=== PATIENT | female | born 1970 | race Hispanic/Latino ===

== ENCOUNTER → 2020-06-01 | Outpatient (CLI) | payer OTHER | END | disposition home or self-care (01) | LOC: OIH 15:10 | PROVIDERS: ATTEND Internal Medicine | DX: M79.641 Pain in right hand (principal) | CPT/HCPCS: 73120 ==

== ENCOUNTER 2023-04-04 10:57 | Emergency (ER) | payer OTHER ==
[~2023-04-04] VITALS: Ht 160 cm; Wt 65.8 kg
[2023-04-04] MEDS ORDERED: LOSARTAN 50 MG TABLET PO SCH (11:30)
[2023-04-04 11:38] LABS: BASOPHILS # (AUTO) 0.03 K/uL (0.00-0.20); BASOPHILS % (AUTO) 0.4 % (0.0-5.0); EOSINOPHILS # (AUTO) 0.12 K/uL (0.00-0.70); EOSINOPHILS % (AUTO) 1.6 % (0.0-8.0); HEMATOCRIT 47.4 % (36-48); IMMATURE GRANULOCYTE ABSOLUTE 0.02 K/uL (0-1); LYMPHOCYTES # (AUTO) 1.4 K/uL (1.0-4.8); LYMPHOCYTES % (AUTO) 18.5 % (21.0-51.0); MEAN CORPUSCULAR HEMOGLOBIN 29.9 pg (27.0-33.0); MEAN CORPUSCULAR VOLUME 87.9 fL (79-99); MONOCYTES # (AUTO) 0.3 K/uL (0.1-1.0); MONOCYTES % (AUTO) 4.7 % (3.0-13.0); NEUTROPHILS # (AUTO) 5.4 K/uL (1.8-7.7); NEUTROPHILS % (AUTO) 74.5 % (40.0-77.0); PLATELET COUNT (AUTO) 123 K/uL (130-400); RED BLOOD CELL COUNT(AUTO) 5.39 MIL/uL (4.00-5.50); RED CELL DISTRIBUTION WIDTH 13.2 % (11.0-15.5); WHITE BLOOD COUNT (AUTO) 7.3 K/uL (4.8-10.8)
[2023-04-04 11:49] LABS: CREATININE 0.7 mg/dL (0.5-1.5)
[2023-04-04 11:53] LABS: ALBUMIN 4.4 g/dL (3.5-5.0); BILIRUBIN,TOTAL 0.9 mg/dL (0.2-1.0); TOTAL PROTEIN, SERUM 8.5 g/dL (6.0-8.3)
[2023-04-04 12:22] VITALS: BP 133/77; PULSE 71; RESP 18; O2SAT 98
== END 2023-04-04 14:12 | disposition home or self-care (01) ==
LOC: EDH 10:57
DX: I10 Essential (primary) hypertension (principal); F41.9 Anxiety disorder, unspecified; F32.A Depression, unspecified; E78.00 Pure hypercholesterolemia, unspecified; E11.9 Type 2 diabetes mellitus without complications; G89.29 Other chronic pain
CPT/HCPCS: 36415; 80053; 85025

== ENCOUNTER → 2025-01-28 | Emergency (ER) | payer BC ==
[~2025-01-28] VITALS: Ht 152.4 cm; Wt 67.6 kg
--- NOTE | 2025-01-28 07:54 | ERN ---
General Chief Complaint: Anxiety/Panic Attack Stated Complaint: ANXIETY Time Seen by MD: 07:27 Source: patient History of Present Illness Initial Comments 54-year-old female with a past medical history of GERD anxiety spondylolisthesis diabetes hypertension cervical pain syndrome discovered that her pet cat at 4:00 a.m. and since then has had nausea emesis feeling lightheaded crying warning and extreme abdominal pain subxiphoid. She is a little perplexed and unsure about what is happening and she comes to the emergency room for both symptom control and evaluation. Allergies: Coded Allergies: No Known Drug Allergies (Unverified Allergy, Unknown, 04/04/23) Past Medical History Past Medical History: Depression, Diabetes-Type II, GERD, High Cholesterol, Hypertension Medical History Other: chronic lower back pain, cervical pain syndrome, Past Surgical History: Other Social History Social History: Negative Constitutional: (-) chills, (-) diaphoresis, (-) fever, (-) malaise, (-) weakness, (-) other documentation Respiratory: (-) cough, (-) orthopnea, (-) short of breath, (-) stridor, (-) wheezing, (-) other documentation Cardiovascular: (-) chest pain, (-) edema, (-) palpitations, (-) syncope, (-) dyspnea on exertion, (-) other documentation Gastrointestinal/Abdominal: (+) nausea, (+) vomiting Genitourinary: (-) vaginal discharge, (-) vaginal bleeding, (-) dysuria, (-) frequency, (-) hematuria, (-) pain, (-) other documentation Musculoskeletal: (+) Neck pain Skin: (-) laceration, (-) contusion, (-) abrasion, (-) abscess, (-) rash, (-) change in color, (-) change in hair, (-) change in nails, (-) diaphoresis, (-) dryness, (-) other documentation Neuro: (+) other documentation (lightheadedness) Physical Exam General Appearance: (+) moderate distress Orientation: (+) alert, (+) oriented x 3 Head/Face Trauma: No Eye: bilateral eye normal inspection, bilateral eye PERRL, bilateral eye EOMI Ear, Nose, Throat: (+) hearing grossly normal, (+) normal ENT inspection, (+) normal pharynx Neck: (+) normal inspection, (+) supple, (+) no JVD Respiratory: (+) chest non-tender, (+) lungs clear Heart: (+) regular, (+) no gallop Vascular: (+) no edema, (+) normal peripheral pulse, (+) no JVD Gastrointestinal: (+) soft, (+) non-tender, (+) bowel sound present Skin Comment mild tenting Results Laboratory and Microbiology Lab and Micro Result Laboratory Tests Test 01/28/25 07:55 01/28/25 08:00 01/28/25 09:33 White Blood Count 6.7 K/uL (4.8-10.8) Red Blood Count 5.55 MIL/uL (4.00-5.50) H Hemoglobin 16.3 g/dL (12.0-16.0) H Hematocrit 48.0 % (36-48) Mean Corpuscular Volume 86.5 fL (79-99) Mean Corpuscular Hemoglobin 29.4 pg (27.0-33.0) Mean Corpuscular Hemoglobin Concent 34.0 g/dL (32.0-36.0) Red Cell Distribution Width 12.8 % (11.0-15.5) Platelet Count 125 K/uL (130-400) L Mean Platelet Volume 13.0 fL (7.5-10.5) H Immature Granulocyte % (Auto) 0.3 % (0-1) Neutrophils (%) (Auto) 65.4 % (40.0-77.0) Lymphocytes (%) (Auto) 27.8 % (21.0-51.0) Monocytes (%) (Auto) 3.9 % (3.0-13.0) Eosinophils (%) (Auto) 2.0 % (0.0-8.0) Basophils (%) (Auto) 0.6 % (0.0-5.0) Neutrophils # (Auto) 4.4 K/uL (1.8-7.7) Lymphocytes # (Auto) 1.9 K/uL (1.0-4.8) Monocytes # (Auto) 0.3 K/uL (0.1-1.0) Eosinophils # (Auto) 0.13 K/uL (0.00-0.70) Basophils # (Auto) 0.04 K/uL (0.00-0.20) Absolute Immature Granulocyte (auto 0.02 K/uL (0-1) Nucleated Red Blood Cells 0.0 % (0.0-0.19) Sodium Level 137 mmol/L (136-145) Potassium Level 3.3 mmol/L (3.5-5.1) L Chloride Level 96 mmol/L (101-111) L Carbon Dioxide Level 28 mmol/L (21-32) Blood Urea Nitrogen 6 mg/dL (7-18) L Creatinine 0.5 mg/dL (0.5-1.0) Glomerular Filtration Rate Calc 111 mL/min (>90) Random Glucose 389 mg/dL (70-105) H Total Calcium 9.2 mg/dL (8.5-10.1) Total Bilirubin 1.0 mg/dL (0.2-1.0) Aspartate Amino Transf (AST/SGOT) 45 U/L (10-37) H Alanine Aminotransferase (ALT/SGPT) 93 U/L (12-78) H Alkaline Phosphatase 120 U/L (50-136) Total Protein 8.3 g/dL (6.0-8.3) Albumin 4.7 g/dL (3.5-5.0) Urine Color COLORLESS (YELLOW) Urine Appearance CLEAR (CLEAR) Urine pH 5.5 (5.0-8.0) Urine Specific Elizabeth 1.033 (1.001-1.031) Urine Protein 30 mg/dL (NEGATIVE) H Urine Glucose (UA) >=1000 mg/dL (NEGATIVE) H Urine Ketones 100 mg/dL (NEGATIVE) H Urine Occult Blood NEGATIVE (NEGATIVE) Urine Nitrate NEGATIVE (NEGATIVE) Urine Bilirubin NEGATIVE mg/dL (NEGATIVE) Urine Urobilinogen 0.2 mg/dL (0.2-1.0) Urine Leukocyte Esterase NEGATIVE Polly/uL Urine RBC 0-1 /HPF (0-1) Urine WBC 0-1 /HPF (0-1) Urine Squamous Epithelial Cells RARE /HPF (0-2) Urine Bacteria None /HPF (None Seen) Urine HCG, Qualitative NEGATIVE (NEGATIVE) Troponin I High Sensitivity 14 ng/L (4-50) MDM MDM: Differential diagnosis: gastroenteritis, anxiety, dehydration, flu, GERD, Rationale: Tests considered and ordered secondary to shared decision making include: Previous outside records reviewed: Old ER visits. Risk of complication and/or morbidity or mortality of patient management: None Medications-Per medication reconciliation Need for hospitalization: Patient does meet criteria for hospitalization. Need for emergency major/minor surgery: No There are no social concerns with this patient. Prescription drug management Prescriptions will include symptomatic care Patient's prior external medical records from other ER visits were reviewed by me as indicated. Prior testing and results from previous visits were reviewed. Prior tests were taken into account with medical decision making and resource utilization, independent historian/historians were used to obtain complete medical history. I independently interpreted the test that were performed, results were reviewed by me and considered findings on radiology if ordered. I have transitioned the care of this patient over to Dr. Lemon. CC: anxiety symptoms Historian: patient Comorbidities: DM, GERD, DLD, HTN Limitations by social determinates of health: none Ddx: anxiety, ACS, other Vital signs are stable, remained stable in the ER EKG (independently ordered and interpreted by me): Normal sinus rhythm, rate of 68, normal axis, good R-wave progression, intervals are stable no STEMI. Labs (independently ordered and interpreted by me): The CBC is unremarkable. Chemistry unremarkable other than glucose 389. Liver enzymes are all stable troponin is stable. Urinalysis shows glucose high specific gravity otherwise unremarkable. Treatment in ED: 1 L lactated Ringer's, Zofran, GI cocktail Re-evaluation: Stable. Symptoms improved. Stable vital signs. Patient's symptoms most consistent with a anxiety possibly some heartburn. Very low suspicion for any life threats. Low suspicion for ACS. Patient had her cat this morning which likely instigated all of the anxiety type symptoms. We will DC and recommend PCP follow up. ED Course Orders Procedure Category Date Status Time Cbc With Differential LAB 01/28/25 Complete 07:40 Comprehensive LAB 01/28/25 Complete Metabolic Panel 07:40 ,Urine Test LAB 01/28/25 Complete 07:40 Urinalysis Profile LAB 01/28/25 Complete 07:40 Ondansetron 4mg Inj PHA 01/28/25 Complete (Zofran 4mg Inj) 08:00 Lactated Ringers PHA 01/28/25 Complete 1000ml (Lactated 07:40 Lidocaine Hcl 2% PHA 01/28/25 Complete Viscous (Lidocaine Hcl 08:00 Mag/Alum/Simeth 30ml PHA 01/28/25 Complete (Maalox Plus 30ml) 08:00 Dicyclomine Hcl PHA 01/28/25 Complete (Bentyl 10mg/5ml 08:00 Troponin I High LAB 01/28/25 Complete Sensitivity 08:49 12 Lead Ekg Tracing- EKG 01/28/25 Complete Technical 08:49 Current Medications Medications (Trade) Dose Ordered Sig/Fernanda Route PRN Reason Start Time Stop Time Status Last Admin Dose Admin Al Hydroxide/Mg Hydroxide (MAALox PLUS 30ML) 30 ml ONCE ONCE PO 01/28/25 08:00 01/28/25 08:01 DC 01/28/25 08:03 Dicyclomine HCl (Bentyl 10mg/5ml Syrup) 10 mg ONCE ONCE PO 01/28/25 08:00 01/28/25 08:01 DC 01/28/25 08:03 Lactated Ringer's (Lactated Ringers 1000ml) 1,000 ml BOLUS STAT IV 01/28/25 07:40 01/28/25 07:44 DC 01/28/25 08:03 Lidocaine HCl (Lidocaine HCl 2% Viscous) 10 ml ONCE ONCE PO 01/28/25 08:00 01/28/25 08:01 DC 01/28/25 08:03 Ondansetron HCl (zoFRAN 4MG INJ) 4 mg ONCE ONCE IVP 01/28/25 08:00 01/28/25 08:01 DC 01/28/25 08:03 Vital Signs Date Time Temp Pulse Resp B/P (MAP) Pulse Ox O2 Delivery O2 Flow Rate FiO2 01/28/25 08:16 78 18 181/86 100 Room Air* 0 21 01/28/25 07:20 97.9 79 18 162/98 98 Room Air DX & DISP Disposition: Discharge Departure Impression: Primary Impression: Anxiety Additional Impressions: Mild dehydration, Hyperglycemia Condition: Stable Additional Instructions: There are no dangerous findings on your workup here today. Your symptoms may be related to GERD/reflux and anxiety about health. Your EKG is stable. Your lab work (CBC with differential, metabolic panel, liver function tests, troponin, urinalysis) does not show any life-threatening findings. You do have mild dehydration and you have elevated blood glucose. Please continue with all of your home medications. You can take an [id number] medication for your indigestion/reflux. Please follow up with the primary doctor as an outpatient later this week for re-evaluation. Return to the emergency department if you have any concerns. Referrals: NEYMAR SANTOS MD (PCP) GREGG ROSENBAUM MD Jan 28, 2025 07:54 KALPANA LEMON DO Jan 28, 2025 10:01
[2025-01-28] MEDS: LACTATED RINGERS 1000ML IV STA (08:03)
[2025-01-28] MEDS: DICYCLOMINE HCL 10 MG/5 ML ML PO ONE (08:03)
[2025-01-28] MEDS: MAG/ALUM/SIMETH 30 ML UDCUP PO ONE (08:03)
[2025-01-28] MEDS: LIDOCAINE HCL 2% VISCOUS 15 ML UDCUP PO ONE (08:03)
[2025-01-28 08:32] LABS: IMMATURE GRANULOCYTE ABSOLUTE 0.02 K/uL (0-1); NUCLEATED RED BLOOD CELLS 0.0 % (0.0-0.19); PLATELET COUNT (AUTO) 125 K/uL (130-400); RED BLOOD CELL COUNT(AUTO) 5.55 MIL/uL (4.00-5.50); RED CELL DISTRIBUTION WIDTH 12.8 % (11.0-15.5); WHITE BLOOD COUNT (AUTO) 6.7 K/uL (4.8-10.8)
[2025-01-28 08:39] LABS: CREATININE 0.5 mg/dL (0.5-1.0); GLOMERULAR FILTR. RATE CALC 111.0 mL/min (>90); GLUCOSE,RANDOM 389.0 mg/dL (70-105); SODIUM SERUM 137.0 mmol/L (136-145); UREA NITROGEN, BLOOD 6.0 mg/dL (7-18)
[2025-01-28 08:41] LABS: HCG,QUALITATIVE URINE NEGATIVE (NEGATIVE)
[2025-01-28 08:43] LABS: APPEARANCE,URINE CLEAR (CLEAR); GLUCOSE, URINE (UA) >=1000 mg/dL (NEGATIVE); LEUKOCYTE ESTERASE ,URINE NEGATIVE Leu/uL (NEGATIVE); NITRATE,URINE NEGATIVE (NEGATIVE); OCCULT BLOOD,URINE NEGATIVE (NEGATIVE)
[2025-01-28 08:44] LABS: ASPARTATE AMINOTRANSFERASE 45.0 U/L (10-37); TOTAL PROTEIN, SERUM 8.3 g/dL (6.0-8.3)
[2025-01-28 08:44] LABS: ADD UA MICROSCOPIC YES
[2025-01-28 09:00] LABS: SQUAMOUS EPITHELIAL CELL,UR RARE /HPF (0-2)
--- NOTE | 2025-01-28 09:26 | EKG ---
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
[2025-01-28 10:23] VITALS: BP 159/78; PULSE 77; RESP 16; TEMP 97.5; O2SAT 97
== END ==
LOC: EDH 07:19
DX: F41.9 Anxiety disorder, unspecified (principal); E86.0 Dehydration; E11.65 Type 2 diabetes mellitus with hyperglycemia; E78.00 Pure hypercholesterolemia, unspecified; I10 Essential (primary) hypertension; K21.9 Gastro-esophageal reflux disease without esophagitis
CPT/HCPCS: 99284; 96374; 96361; 84484; 80053; 85025; 81001; 81025; 36415; 93005; J7120; J2405